=== PATIENT | female | born 1955 | race Caucasian/White ===

== ENCOUNTER 2020-10-04 13:33 | Outpatient (REF) | payer MEDICARE, MEDICAID, SELFPAY ==
--- NOTE | 2020-10-04 13:45 | US_ITS ---
EXAMINATION: US EXTRACRANIAL CAROTID DUPLEX, BILATERAL CLINICAL INFORMATION: This is a 65-year-old female with TIA. Carotid artery disease. COMPARISON: None TECHNIQUE: Real-time ultrasound and Doppler techniques (integrating B-mode 2-D vascular images, Doppler spectral analysis and color-flow Doppler imaging) were utilized to interrogate the extracranial carotid arteries, the vertebral arteries and proximal subclavian arteries bilaterally. The degree of stenosis is determined by criteria similar to NASCET. FINDINGS: Right Side: 1. There is minimal atherosclerotic plaque seen in the bifurcation/proximal ICA region. 2. The common carotid artery PSV proximally is 85 cm/s and distally 65 cm/s. 3. The proximal internal carotid artery velocities are 47 cm/s systolic and 13 cm/s diastolic. 4. The proximal external carotid artery PSV is 62 cm/s. 5. The vertebral artery shows antegrade flow. 6. The subclavian artery waveforms are normal. Left Side: 1. There is minimal atherosclerotic plaque seen in the bifurcation/proximal ICA region. 2. The common carotid artery PSV proximally is 108 cm/s and distally 67 cm/s. 3. The proximal internal carotid artery velocities are 63 cm/s systolic and 16 cm/s diastolic. 4. The proximal external carotid artery PSV is 75 cm/s. 5. The vertebral artery shows antegrade flow. 6. The subclavian artery waveforms are normal. US/US carotid duplex BI IMPRESSION: 1. RIGHT: Minimal, non-hemodynamically significant stenosis of the proximal right internal carotid artery corresponding to a 0-49% stenosis by velocity criteria. 2. LEFT: Minimal, non-hemodynamically significant stenosis of the proximal left internal carotid artery corresponding to a 0-49% stenosis by velocity criteria.
[2020-10-04 16:38] LABS: MANUAL DIFF FLAG NO
[2020-10-04 16:40] LABS: Basophils Percent Auto 0.2 % (0-2); Eosinophils Absolute Auto 0.1 X10*3/uL (0.0-0.4); Hematocrit 41.2 % (37-47); Hemoglobin 13.5 g/dl (12.0-16.0); Imm Gran Abs Auto 0.02 X10*3/uL (0.00-0.03); Imm Gran Pct Auto 0.2 % (0.0-0.4); Lymphocytes Absolute Auto 2.3 X10*3/uL (1.2-4.9); Lymphocytes Percent Auto 27.8 % (20-40); Mean Corpuscular HGB Conc 32.8 g/dl (31.0-35.0); Mean Corpuscular Hemoglobin 30.5 pg (27.0-33.0); Mean Corpuscular Volume 93.2 fL (80-98); Mean Platelet Volume 8.9 fL (9.4-12.3); Monocytes Absolute Auto 0.4 X10*3/uL (0.1-1.2); Monocytes Percent Auto 5.4 % (2-11); Neutrophils Absolute Auto 5.3 X10*3/uL (2.0-8.3); Neutrophils Percent Auto 65.4 % (45-73); Platelet Count 446 X10*3/uL (160-400); Red Blood Count 4.42 X10*6/uL (4.20-5.50); Red Cell Distribution Width 11.9 % (11.0-16.0); White Blood Count 8.1 X10*3/uL (4.8-10.8)
[2020-10-04 17:10] LABS: Anion Gap 15 (12-20); Blood Urea Nitrogen 10 mg/dL (9-16); Calcium 9.5 mg/dL (8.4-10.2); Carbon Dioxide 27 mmol/L (22-29); Chloride 98 mmol/L (96-108); Estimated Glomerular Filt Rate > 60; Glucose Random 79 mg/dL (60-115); Potassium 4.1 mmol/l (3.3-5.1); Sodium 136 mmol/L (135-145)
[2020-10-04 17:32] LABS: Thyroid Stimulating Hormone 0.53 uIU/mL (0.32-4.0)
== END 2020-10-04 13:34 | disposition home or self-care (01) ==
LOC: HO.HMGCX 13:33
PROVIDERS: PCP Internal Medicine; Visit Provider Internal Medicine
DX: Z00.00 Encounter for general adult medical examination without abnormal findings (principal); G45.9 Transient cerebral ischemic attack, unspecified; R15.9 Full incontinence of feces; E03.9 Hypothyroidism, unspecified
CPT/HCPCS: 36415; 80048; 84443; 85025; 93880

== ENCOUNTER 2020-10-08 10:17 | Outpatient (REF) | payer MEDICARE, MEDICAID, SELFPAY ==
--- NOTE | 2020-10-08 10:21 | CT_ITS ---
EXAMINATION: CT HEAD WITHOUT CONTRAST CLINICAL INFORMATION: TIA. COMPARISON: None TECHNIQUE: Contiguous axial imaging was performed from the skull base to vertex without intravenous administration of contrast. This CT examination was performed using dose optimization techniques as appropriate, variously including the following: *Automated exposure control *Adjustment of mA and/or kV according to patient size (this includes techniques or standardized protocols for targeted exams where dose is matched to indication/reason for exam; i.e. extremities or head) *Use of iterative reconstruction technique DLP: 815 mGy-cm FINDINGS: There is no evidence of acute intracranial hemorrhage or territorial infarction. No abnormal mass effect or midline shift is seen. Greene to white matter differentiation is well preserved. No extra-axial fluid collections are identified. The ventricles are normal in size. There is no abnormal attenuation within the brain parenchyma. The osseous structures and soft tissues are normal. The mastoid air cells and visualized portions of the paranasal sinuses are well aerated. CT/CT head/brain wo con IMPRESSION: No acute intracranial process seen.
== END 2020-10-08 10:18 | disposition home or self-care (01) ==
LOC: HO.CT 10:17
PROVIDERS: Visit Provider Internal Medicine
DX: G45.9 Transient cerebral ischemic attack, unspecified (principal)
CPT/HCPCS: 70450

== ENCOUNTER 2020-10-12 10:30 | Emergency (ER) | payer MEDICARE, MEDICAID, SELFPAY ==
[2020-10-12 10:34] VITALS: BP 185/101; PULSE 85; RESP 20; TEMP 36.6; O2SAT 100; BMI 20.2
--- NOTE | 2020-10-12 10:57 | ECG_ITS ---
Test Reason : TIA Blood Pressure : / mmHG Vent. Rate : 072 BPM Atrial Rate : 072 BPM P-R Int : 154 ms QRS Dur : 080 ms QT Int : 414 ms P-R-T Axes : 070 016 038 degrees QTc Int : 453 ms Normal sinus rhythm Normal ECG When compared to the previous EKG of november 262005 Referred By: Irving Herrera Electronically Signed By:ALISON BRIGHT
--- NOTE | 2020-10-12 10:58 | ED.NEUROSD ---
HPI - Neuro Symptoms/Deficit General Chief Complaint: General Medical Stated Complaint: numbness Time Seen by Provider: 10/12/20 10:42 Source: patient Mode of arrival: ambulatory Limitations: no limitations History of Present Illness HPI Narrative: Patient's history of recent TIA with loss of vision in the right eye which lasted for a minute seen by bank operations officer on had carotid Doppler and CT head negative. Since then patient has been more anxious today about 45 minutes prior to arrival noticed tingling in all the fingers of right hand without any weakness no headache . Patient does have arthritis with mild neck pain. Never had similar symptoms before. No weakness. No sensory loss. Tingling is getting better now no other weakness no speech problem Onset (ago): minute(s) (45min) Related Data Allergies Allergy/AdvReac Type Severity Reaction Status Date / Time No Known Allergies Allergy Verified 10/07/20 11:36 [No Known Allergies*] Review of Systems Review of Systems: Constitutional : No Weight loss, No Fever, No Chills ENT/Mouth : No sore throat, No Rhinorrhea Eyes: No Eye Pain, No Swelling Cardiovascular : No Chest Pain, no palpitations Respiratory : No Cough, No Sputum, no shortness of breath Gastrointestinal : no Nausea, No Vomiting, No Diarrhea, No abdominal Pain, no black stools Genitourinary : No Dysuria, No Urinary Frequency Musculoskeletal : No joint pain, No Myalgias, No Joint Swelling Skin : No Skin Lesions, No rash Neuro : No Weakness,++ Numbness, No Dizziness, No Headache Psych : No Anxiety/Panic, No Depression Heme/Lymph: No Bruising, No Lymphadenopathy Endocrine : No Polyuria, No Polydipsia All other systems reviewed and are negative Neurologic: Denies Abnormal speech present [facility] Past Medical History Medical History (Updated 10/12/20 @ 12:32 by Irving Herrera MD) Appendicitis TIA (transient ischemic attack) Family History Family History Mother No problems noted. Father No problems noted. Social History Social History Alcohol intake: never Smoking Status: Former smoker Years Smoked: 1999 Advance Directives: No Advance Directives Information Provided: No Physical Exam Vital Signs: Vital Signs: Last Vital Signs Temp 97.8 F 10/12/20 10:34 Pulse 85 10/12/20 10:34 Resp 20 10/12/20 10:34 BP 185/101 H 10/12/20 10:34 Pulse Ox 100 10/12/20 10:34 Body Mass Index 20.2 Const: General: cooperative, healthy appearing, no acute distress, well developed, alert, awake and anxious Orientation/consciousness: patient oriented x3 HENMT: Head: Yes normal to inspection Ears: hearing grossly normal bilaterally General nose exam: Normal external nose present Face and sinus: Yes normal facial exam Mouth: Normal oral and palatal mucosa present Throat: Yes posterior oropharynx normal Eyes: General: appearance normal, both eyes and all related structures Pupils: Equal, round and reactive pupils present Neck: Neck: Yes normal visual inspection and Yes no JVD Chest: Chest palpation & inspection: normal inspection of the chest Resp: Effort & Inspection: normal respiratory effort Auscultation: clear to auscultation bilaterally, no crackles, no rales and no rhonchi Cardio: Palpation: normal PMI Rate: regular rate Rhythm: regular rhythm Heart sounds: S1 normal heart sound present and S2 normal heart sound present GI: Inspection: Yes normal to inspection Palpation (GI): Soft to palpation and nontender Auscultation: normal bowel sounds : General: Yes no CVA tenderness Back/Spine/Pelvis: Back: no CVA tenderness Cervical Spine: cervical ROM normal, cervical muscular tenderness, No Cervical spine tenderness and No step off deformity Thoracic/Lumbar Spine: thoracic and lumbar spine normal to inspection Skin: General skin exam: no rashes or lesions noted Neuro: General: patient oriented x3, gait normal, tone normal, moves all extremities, Normal light touch and pain sensation, no focal motor deficits, CN's II-XI intact bilaterally, normal sensation to monofilament and deep tendon reflexes 2+ bilaterally Cranial nerves: Yes Equal, round and reactive pupils present Cognition (Neuro): normal cognition Speech: No Abnormal speech present Gait exam (Neuro): Normal gait present Motor exam (neuro): 5/5 motor strength present throughout MDM - Neuro Symptoms/Deficit MDM Narrative Medical decision making narrative: Patient with nonspecific tingling in right hand without any sensory or motor weakness. Patient recently had carotid Doppler and CT scan of the head negative. Patient cholesterol is normal and D-dimer is negative patient advised to follow-up with PCP likely symptoms from anxiety possible cervical origin. Medical Records Attestation: I reviewed the patient's medical records. Lab Data Attestation: I reviewed the patient's lab results. Labs: Lab Results 10/12/20 10/12/20 Range/Units 11:17 11:17 D-Dimer < 200 NG/ML Triglycerides 74 mg/dL Cholesterol 206 mg/dL LDL Cholesterol, Calc 101 mg/dl HDL Cholesterol 91 mg/dL ECG Data Attestation: I personally reviewed and interpreted this ECG as follows: Interpretation: Normal sinus rhythm heart rate 72 beats per minute normal axis normal intervals no acute ST T wave changes impression normal EKG Discharge Plan Discharge Clinical Impression: Arm paresthesia, right Patient Disposition: Home, Self-Care Instructions: Paresthesia (ED) Additional Instructions: Follow-up with PCP/neurologist As needed Report to the ER if any weakness
[2020-10-12 11:52] LABS: Cholesterol 206 mg/dL; D Dimer < 200 NG/ML; HDL Cholesterol 91 mg/dL; LDL Cholesterol Calculated 101 mg/dl; Triglycerides 74 mg/dL
== END 2020-10-12 13:17 | disposition home or self-care (01) ==
PROVIDERS: Emergency Provider Internal Medicine; PCP Internal Medicine
DX: R20.2 Paresthesia of skin (principal); Z87.891 Personal history of nicotine dependence
CPT/HCPCS: 36415; 80061; 85379; 93005; 99283

== ENCOUNTER 2020-11-15 07:55 | Emergency (ER) | payer MEDICARE, MEDICAID, SELFPAY ==
[2020-11-15 07:56] VITALS: BP 183/94; PULSE 100; RESP 18; TEMP 36.9; O2SAT 100; BMI 19.8
--- NOTE | 2020-11-15 09:46 | ECG_ITS ---
Test Reason : HX TIA Blood Pressure : / mmHG Vent. Rate : 067 BPM Atrial Rate : 067 BPM P-R Int : 164 ms QRS Dur : 086 ms QT Int : 422 ms P-R-T Axes : 068 008 033 degrees QTc Int : 445 ms Normal sinus rhythm Normal ECG When compared with ECG of 12-OCT-2020 11:09, No significant change was found Referred By: Robin Sepulveda Electronically Signed By:NERY RUEDA MD
--- NOTE | 2020-11-15 09:47 | ED.GENADULT ---
HPI - General Adult General Chief complaint: Headache Stated complaint: HBP Time Seen by Provider: 11/15/20 09:24 Source: patient Mode of arrival: ambulatory Limitations: no limitations History of Present Illness HPI narrative: 65-year-old female who presents emergency department for evaluation elevated blood pressure. The patient states she had a right ocular TIA 1 month prior with sudden loss of vision which recovered. She states that she has had a workup which included a CT scan which was negative and carotid studies which were negative. She states that recently she had an MRI of the brain and echocardiogram which believes are normal but she has not followed up with her doctor yet to discuss these results. She states that after her TIA she was started on amlodipine 5 mg daily. She states that her blood pressures remained elevated in the 150/80 range and she was started on lisinopril 10 mg once a day. She has been on lisinopril for 9 days. She states that since starting the lisinopril she has had brief intermittent sharp headaches located in her left orthodoxy area. She states she gets these several times a day. She has also had lightheadedness and dizziness which is episodic, lasting seconds and gets 3-4 episodes per day. She states that this morning, she was not feeling anxious, she was asymptomatic and she took her blood pressure and it was 197/94 therefore she came to the emergency department for evaluation. At the time of evaluation, she has no symptoms. Related Data Allergies Allergy/AdvReac Type Severity Reaction Status Date / Time No Known Allergies Allergy Verified 10/14/20 08:46 [No Known Allergies*] Review of Systems Review of Systems: Yes all other systems are reviewed and are negative Neurologic: Reports Abnormal speech present [facility] Past Medical History [facility] Narrative: Ocular TIA, 1 month prior, hypertension, hyperlipidemia, appendectomy. The patient states that she is a former smoker and quit smoking 20 years prior, she has a 20 pack-year history. She denies alcohol use. She does smoke marijuana 2 to 3 times a week. Medical History (Updated 11/15/20 @ 12:08 by Robin Sepulveda MD) Appendicitis TIA (transient ischemic attack) Surgical History (Updated 10/14/20 @ 08:46 by LUIS Redmond) History of appendectomy Family History Family History Mother No problems noted. Father No problems noted. Social History Social History Alcohol intake: never Smoking Status: Never smoker Years Smoked: 1999 Use of substances other than those prescribed or required for medical reasons: Yes Substance Use Type: Marijuana Substance Use Frequency: Weekly Advance Directives: No Advance Directives Information Provided: Yes Physical Exam Vital Signs: Vital Signs: Last Vital Signs Temp 98.2 F 11/15/20 09:50 Pulse 77 11/15/20 09:50 Resp 15 11/15/20 09:50 BP 136/71 11/15/20 09:50 Pulse Ox 100 11/15/20 09:50 Body Mass Index 19.8 Const: General: cooperative and healthy appearing Orientation/consciousness: oriented to person and oriented to place Limitations: no limitations HENMT: Head: Yes normal to inspection, Yes normocephalic, Yes atraumatic and Yes other (No temporal tenderness, no sinus tenderness) Ears: external ears normal General nose exam: Normal external nose present Face and sinus: Yes normal facial exam Mouth: Normal oral and palatal mucosa present Throat: Yes posterior oropharynx normal Eyes: Periorbital: periorbital findings normal Eyelids: Yes eyelids normal Conjunctivae: conjunctivae normal Sclerae: sclerae normal Corneas: corneas normal Pupils: Equal, round and reactive pupils present Direct Ophthalmoscopy: normal light reflex Neck: Neck: Yes full ROM, Yes no lymphadenopathy, Yes no meningeal signs, Yes trachea midline and Yes supple Chest: Chest palpation & inspection: normal inspection of the chest and normal palpation of entire chest wall Resp: Effort & Inspection: normal respiratory effort and able to speak in complete sentences Auscultation: clear to auscultation bilaterally Cardio: Rate: regular rate Rhythm: regular rhythm Heart sounds: S1 normal heart sound present, S2 normal heart sound present and no murmurs GI: Inspection: Yes normal to inspection Palpation (GI): Soft to palpation, nontender, no guarding, not rigid and No hepatosplenomegaly present : General: Yes no CVA tenderness Back/Spine/Pelvis: Back: no CVA tenderness Cervical Spine: normal cervical lordosis Thoracic/Lumbar Spine: thoracic and lumbar spine normal to inspection Skin: Lesions: no lesions Rashes: no rashes Wounds: no wounds Neuro: General: oriented to person, oriented to place and no meningeal signs Cranial nerves: Yes CN's II-XII intact bilaterally and Yes Equal, round and reactive pupils present Cognition (Neuro): normal cognition Speech: Abnormal speech present Motor exam (neuro): 5/5 motor strength present throughout Extrem: General: Yes normal to inspection and Yes full ROM Psych: Appearance: well kempt Mental Status: mental status grossly normal Speech and movement: Normal speech and movement present Affect: normal affect Attitude: cooperative Thought process: Normal thought process present Thought content: Normal thought content present Course Course Course Narrative: 65-year-old female with a history of ocular TIA 1 month prior, recently diagnosed and started treatment for hypertension who was on amlodipine for 1 month and lisinopril for 9 days who presents emergency department for evaluation of an elevated blood pressure of 197/94 for which she took at home. She was asymptomatic when she had this high blood pressure reading. Her examination at this time is unremarkable. The patient will get an EKG to make sure that she is not in atrial fibrillation in laboratory evaluation to rule out electrolyte abnormalities related to her new medications. 1206: The patient's laboratory evaluation is unremarkable. Twelve lead EKG revealed no significant abnormalities. The patient's blood pressures have normalized without treatment, the patient's most recent blood pressure was 114/67. The patient remains asymptomatic. I will discuss the patient's presentation with her PCP. The patient was discharged home and advised to check her blood pressure 3 times a week for next 2 weeks and discuss these readings with her PCP. Medical Decision Making Lab Data Result diagrams: 11/15/20 10:00 11/15/20 10:00 Labs: Lab Results 11/15/20 11/15/20 Range/Units 10:00 10:00 WBC 5.0 (4.8-10.8) X10*3/uL RBC 4.32 (4.20-5.50) X10*6/uL Hgb 13.3 (12.0-16.0) g/dl Hct 39.5 (37-47) % MCV 91.4 (80-98) fL MCH 30.8 (27.0-33.0) pg MCHC 33.7 (31.0-35.0) g/dl RDW 12.2 (11.0-16.0) % Plt Count 306 D (160-400) X10*3/uL MPV 8.5 L (9.4-12.3) fL Immature Gran % (Auto) 0.0 (0.0-0.4) % Neut % (Auto) 60.5 (45-73) % Lymph % (Auto) 30.2 (20-40) % [place] % (Auto) 8.1 (2-11) % Eos % (Auto) 0.8 (0-4) % Baso % (Auto) 0.4 (0-2) % Lymph # (Auto) 1.5 (1.2-4.9) X10*3/uL [place] # (Auto) 0.4 (0.1-1.2) X10*3/uL Eos # (Auto) 0.0 (0.0-0.4) X10*3/uL Baso # (Auto) 0.0 (0.0-0.2) X10*3/uL Abs Immat Gran (auto) 0.00 (0.00-0.03) X10*3/uL Absolute Neuts (auto) 3.0 (2.0-8.3) X10*3/uL Absolute Nucleated RBC 0.000 (0.0-0.012) X10*3/uL Nucleated RBC % (auto) 0.0 (0.0-0.2) /100WBC Sodium 141 (135-145) mmol/L Potassium 4.3 (3.3-5.1) mmol/L Chloride 106 (96-108) mmol/L Carbon Dioxide 26 (22-29) mmol/L Anion Gap 13 (12-20) BUN 9 (9-16) mg/dL Creatinine 0.71 (0.5-1.4) mg/dL Estim Creat Clear Calc 75.7 Estimated GFR > 60 Random Glucose 98 (60-115) mg/dL Calcium 9.5 (8.4-10.2) mg/dL Total Bilirubin 0.8 (0.0-1.0) mg/dL AST 24 (5-31) U/L ALT 31 (0-31) U/L Alkaline Phosphatase 108 (39-117) U/L Total Protein 6.7 (6.5-8.0) g/dL Albumin 4.5 (3.5-5.0) g/dL ECG Data Attestation: I personally reviewed and interpreted this ECG as follows: Interpretation: 1009: Normal sinus rhythm with a rate of 67, normal VT, QRS and QTC intervals, no ST segment elevation or depression, no PACs or PVCs, no old EKG for comparison. This is a normal EKG. Discharge Plan Discharge Clinical Impression: Hypertension Qualifiers: Hypertension type: essential hypertension Qualified Code(s): I10 - Essential (primary) hypertension Patient Disposition: Home, Self-Care Additional Instructions: The reason to check your blood pressure at home is to give your doctor an idea of what your blood pressure does when you are not in the doctor's office. Take your blood pressure in the morning, Wednesday , Wednesday and Wednesday and then write down these readings to discuss them with your doctor at your next visit. If you doctor decides that your blood pressure readings are high than your doctor will start you on medications. It sometimes takes blood pressure medications 1-2 months or longer to get your blood pressure under control. Lowering your blood pressure to rapidly or getting your blood pressure too low quickly can make you feel bad. Please return to the emergency department if you develops concerning symptoms such as severe headache, chest pain, shortness of breath, difficulty walking secondary to shortness of breath, numbness, weakness, difficulty talking. Take Tylenol (acetaminophen) 500 mg pills, 2 pills every 4 to 6 hours as needed for pain/headaches. Follow-up with your doctor to discuss your blood pressure readings. Please return to the emergency department if your symptoms get worse or if you develop any new symptoms that are concerning to you.
[2020-11-15 09:50] VITALS: BP 136/71; PULSE 77; RESP 15; TEMP 36.8; O2SAT 100
[2020-11-15 10:07] LABS: MANUAL DIFF FLAG NO
[2020-11-15 10:09] LABS: Basophils Percent Auto 0.4 % (0-2); Eosinophils Percent Auto 0.8 % (0-4); Hematocrit 39.5 % (37-47); Hemoglobin 13.3 g/dl (12.0-16.0); Lymphocytes Absolute Auto 1.5 X10*3/uL (1.2-4.9); Lymphocytes Percent Auto 30.2 % (20-40); Mean Corpuscular HGB Conc 33.7 g/dl (31.0-35.0); Mean Corpuscular Hemoglobin 30.8 pg (27.0-33.0); Mean Corpuscular Volume 91.4 fL (80-98); Mean Platelet Volume 8.5 fL (9.4-12.3); Monocytes Absolute Auto 0.4 X10*3/uL (0.1-1.2); Monocytes Percent Auto 8.1 % (2-11); Neutrophils Percent Auto 60.5 % (45-73); Platelet Count 306 X10*3/uL (160-400); Red Blood Count 4.32 X10*6/uL (4.20-5.50); Red Cell Distribution Width 12.2 % (11.0-16.0)
[2020-11-15 10:30] LABS: Alanine Aminotransferase 31 U/L (0-31); Albumin Level 4.5 g/dL (3.5-5.0); Alkaline Phosphatase 108 U/L (39-117); Anion Gap 13 (12-20); Aspartate Amino Transferase 24 U/L (5-31); Bilirubin Total 0.8 mg/dL (0.0-1.0); Blood Urea Nitrogen 9 mg/dL (9-16); Calcium 9.5 mg/dL (8.4-10.2); Carbon Dioxide 26 mmol/L (22-29); Chloride 106 mmol/L (96-108); Creatinine Clr Calc Pharmacy 75.7; Estimated Glomerular Filt Rate > 60; Glucose Random 98 mg/dL (60-115); Potassium 4.3 mmol/L (3.3-5.1); Sodium 141 mmol/L (135-145); Total Protein 6.7 g/dL (6.5-8.0)
[2020-11-15 11:30] VITALS: BP 110/70; PULSE 62
[2020-11-15 12:23] VITALS: BP 119/67; PULSE 64
== END 2020-11-15 12:27 | disposition home or self-care (01) ==
PROVIDERS: Emergency Provider Emergency Medicine Emergency Medical Services; PCP Internal Medicine
DX: R51.9 Headache, unspecified (principal); I10 Essential (primary) hypertension; E78.5 Hyperlipidemia, unspecified; F12.90 Cannabis use, unspecified, uncomplicated; Z86.73 Personal history of transient ischemic attack (TIA), and cerebral infarction without residual deficits; Z87.891 Personal history of nicotine dependence; Z79.899 Other long term (current) drug therapy
CPT/HCPCS: 36415; 80053; 85025; 93005; 99283; 99284

== ENCOUNTER 2023-05-19 13:42 | Outpatient (REF) | payer MEDICARE, MEDICAID, SELFPAY ==
[2023-05-19 15:13] LABS: Blood Urea Nitrogen 12 mg/dL (9-16); Estimated Glomerular Filt Rate > 60
== END 2023-05-19 13:43 | disposition home or self-care (01) ==
LOC: HO.LAB 13:42
PROVIDERS: PCP Internal Medicine; Visit Provider Internal Medicine
DX: K62.5 Hemorrhage of anus and rectum (principal); R93.3 Abnormal findings on diagnostic imaging of other parts of digestive tract
CPT/HCPCS: 36415; 82565; 84520

== ENCOUNTER 2023-06-17 07:43 | Outpatient (REF) | payer MEDICARE, MEDICAID, SELFPAY ==
--- NOTE | ~2023-06-17 | CT_ITS ---
STUDY PERFORMED: CTA ABDOMEN AND PELVIS WITHOUT AND WITH CONTRAST HISTORY: Hemorrhage of the anus and rectum. DESCRIPTION: Routine abdomen and pelvis CTA protocol with contrast was performed. 80 mL of Omnipaque 350 was administered. 3D POSTPROCESSING: Multiple 3-D angiographic images were processed from the initial data set by the [facility] on an independent workstation under concurrent physician supervision. DOSE LOWERING TECHNIQUES: This CT examination was performed using dose optimization techniques as appropriate, variously including the following: - Automated exposure control - Adjustment of mA and/or kV according to patient size (this includes techniques or standardized protocols for targeted exams where dose is matched to indication/reason for exam; i.e. extremities or head) - Use of iterative reconstruction technique DOSE LENGTH PRODUCT: 224.9 mGy-cm COMPARISON: None FINDINGS: VASCULAR: ABDOMINAL AORTA: Normal caliber. Minimal infrarenal atherosclerosis. RIGHT ILIAC ARTERY: Widely patent. LEFT ILIAC ARTERY: Widely patent. CELIOMESENTERIC ARTERIES: The celiac, SMA, DEREK are widely patent. RENAL ARTERIES: Bilateral renal arteries are widely patent. The nephrograms are symmetric. NONVASCULAR: Lung Bases: Scarring or atelectasis at the lung bases. Small hiatal hernia. Liver, Gallbladder and Biliary Tree: Subcapsular focus of nonmass-like enhancement in segment 7 at the dome may be a transient perfusional anomaly versus hemangioma. In the absence of a personal history of malignancy or chronic liver disease, no follow-up imaging is recommended. Otherwise the liver appears normal. The gallbladder appears normal. Pancreas: No discrete pancreatic mass. No pancreatic ductal dilatation. Spleen: Normal. Adrenal Glands: No adrenal mass. Kidneys and Ureters: The kidneys are normal in size, shape, and attenuation. No hydronephrosis, hydroureter, or calculi seen. No perinephric stranding. Bladder: Unremarkable. Gastrointestinal Tract: The small and large bowel are normal in caliber. No extravasated intravascular contrast seen within the bowel lumen. No evidence of active enteritis or colitis. Abdominal Wall: No significant hernia is appreciated. Lymph Nodes: No lymphadenopathy. Pelvic Viscera: Unremarkable. Osseous Structures: Moderate degenerative disc disease at L5-S1. Degenerative changes at the pubic symphysis. CT/CT angio abdomen pelvis IMPRESSION: No CTA evidence of active GI bleed. The celiac, superior mesenteric, and inferior mesenteric arteries appear normal. Fleischner guidelines were followed.
[2023-06-17] MEDS: iohexoL 350 MG/ML 100 ML INFUS..BTL IV (09:11)
== END 2023-06-17 07:44 | disposition home or self-care (01) ==
LOC: HO.CT 07:43
PROVIDERS: Visit Provider Internal Medicine
DX: K62.5 Hemorrhage of anus and rectum (principal); R93.3 Abnormal findings on diagnostic imaging of other parts of digestive tract
CPT/HCPCS: 74174; Q9967

== ENCOUNTER 2023-08-09 11:31 | Day surgery (SDC) | payer MEDICARE, MEDICAID, SELFPAY ==
[2023-08-05 11:36] VITALS: BMI 19.5
--- NOTE | 2023-08-06 09:31 | P.CONAN_ITS ---
HPI - Anesthesia Eval Consult details Narrative: 68yo F for Colonoscopy PMFSH Past Medical History Medical History Former smoker Hyperlipemia HTN (hypertension) Appendicitis TIA (transient ischemic attack) Family History Family History Mother No problems noted. Father No problems noted. Surgical History Surgical History History of colonoscopy History of appendectomy Social History (Updated 08/05/23 @ 11:11 by Mi Govea RN) Are you a primary health care aide to a significant other at home: No Do you presently have visiting nurse or other home services: No Alcohol intake: never Patient Tobacco Use Status: Former Tobacco user Quit Date: 1999 Tobacco use type: Cigarette Use of substances other than those prescribed or required for medical reasons: Yes Substance Use Type: Marijuana Have you been hit, kicked, punched, or otherwise hurt by someone within the past year? If so, by whom?: No Are you DNR?: No Advance Directives: No Advance Directives Information Provided: Yes (brochure mailed) Advance Directives on File: No Recently lost weight without trying: No Eating poorly because of decreased appetite: No Nutrition Risks: No Nutritional Risk Poor oral hygiene: No Meds Allergies Allergy/AdvReac Type Severity Reaction Status Date / Time No Known Allergies Allergy Verified 08/09/23 11:47 [No Known Allergies*] Home Medications Medication Instructions Recorded Confirmed Last Taken Type aspirin 81 mg capsule 81 mg PO DAILY 08/04/23 08/09/23 08/06/23 History atorvastatin 20 mg tablet 20 mg PO DAILY 08/04/23 08/09/23 08/09/23 History diltiazem HCl 180 mg 180 mg PO DAILY 08/04/23 08/09/23 08/09/23 History capsule,extended release 24 hr lisinopril 40 mg tablet 40 mg PO DAILY 08/04/23 08/09/23 08/09/23 History spironolactone 25 mg tablet 25 mg PO DAILY 08/04/23 08/09/23 08/09/23 History Exam Height,Weight and Vital Signs: Height 5 ft 9 in Weight 60.056 kg Assessment and Plan Assessment Anesthesia Assessment: Chart Reviewed
[2023-08-09 12:05] VITALS: BP 133/86; PULSE 76; RESP 16; TEMP 36.5; O2SAT 100
[2023-08-09] MEDS: Lactated Ringers 1,000 ML 100 ML IVCONT (12:05)
[2023-08-09 14:52] VITALS: BP 87/47; PULSE 85; RESP 16; TEMP 36.7; O2SAT 98
--- NOTE | 2023-08-09 14:54 | PM.OP ---
Brief Operative Note Date of Service: 08/09/23 Pre-op diagnosis: Abnormal CT of Colon, Rectal bleeding Post-op diagnosis: other (Colon polyps) Procedure: Colonoscopy to the cecum and TI with hot snare polypectomy of TC polyp and cold snare polypectomy of polyp at 15cm, with one Resolution clip applied to each site. Surgeon: Caleb Barros MD Anesthesia: MAC Was an Certified Ophthalmic Assistant used for this Procedure?: No Estimated blood loss (mL): 2.0 Pathology: other (A. Transverse colon polyp B. Polyp at 15cm) Condition: stable Disposition: PACU
[2023-08-09 15:07] VITALS: BP 107/54; PULSE 76; RESP 16; TEMP 36.8; O2SAT 99
--- NOTE | 2023-08-10 00:09 | OP_ITS ---
DATE OF SERVICE: 08/09/2023 SURGEON: Caleb Barros MD INDICATIONS: The patient presents for evaluation of abnormal CT scan of colon and intermittent hematochezia. Full consent has been obtained from her for this, including risks of bleeding and perforation. PREOPERATIVE DIAGNOSIS: Hematochezia and abnormal CT scan of colon. POSTOPERATIVE DIAGNOSIS: Hematochezia and abnormal CT scan of colon, colon polyps, diverticulosis, and internal hemorrhoids. PROCEDURE PERFORMED: Colonoscopy to the cecum and terminal ileum with hot snare polypectomy and cold snare polypectomy with application of one resolution clip at each polypectomy site. ESTIMATED BLOOD LOSS: COMPLICATIONS: ANESTHESIA: Medication Used: Monitored anesthesia care. ASSISTANTS: SPECIMENS: DESCRIPTION OF PROCEDURE: The patient was placed in the left lateral decubitus position. The digital rectal exam revealed no abnormalities. The [employer] video pediatric colonoscope was entered into the rectum and advanced easily to the cecum. Once in the cecum, I did identify normal-appearing cecal pouch with appendiceal orifice and a normal-appearing ileocecal valve. The terminal ileum was cannulated and appeared normal. The scope was withdrawn back in the colon. The entire cecum and ileocecal valve appeared normal. The scope was slowly withdrawn, assessing all mucosal surfaces carefully. Preparation was excellent. In the transverse colon, was an approximately 6 to 8 mm polyp, which was removed by hot snare polypectomy and recovered by suction. The polypectomy site appeared clean, without any sign of residual polyp nor bleeding. A single resolution clip was applied with good deployment and good hemostasis. At 15 cm, was approximately 5 or 6 mm polyp, which was removed by cold snare polypectomy and recovered by suction. The polypectomy site appeared clean, without any sign of residual polyp nor significant bleeding. A single resolution clip was applied with good deployment and good hemostasis. I did not visualize any other polyps, colitis, or angiodysplasia. There was a mild amount of sigmoid diverticulosis. In the rectum, scope was retroflexed, visualizing internal hemorrhoids, but no other pathology. The rectal mucosa appeared normal. Scope was straightened and withdrawn from the patient. She tolerated the procedure well and was returned to the recovery area in stable condition. IMPRESSION: 1. Colon polyps. 2. Diverticulosis. 3. Internal hemorrhoids. PLAN: The results of the pathology will be checked. I would recommend a repeat colonoscopy in 5 years if either of these are tubular adenomas. They are both hyperplastic, then I would recommend a repeat colonoscopy in 10 years. She was advised to resume aspirin in 72 hours. She was advised not to use any NSAIDs for 1 week. She will, otherwise, see me on a p.r.n. basis. MD JADIEL Pierre/YONATHAN / [phone]
== END 2023-08-09 15:30 | disposition home or self-care (01) ==
PROVIDERS: PCP Internal Medicine; Visit Provider Internal Medicine
PROC: 0DJD8ZZ Inspection of Lower Intestinal Tract, Via Natural or Artificial Opening Endoscopic (ICD-10-PCS; CPT 45378; principal; 2023-08-09 12:50)
DX: K63.5 Polyp of colon (principal); K62.1 Rectal polyp; K57.30 Diverticulosis of large intestine without perforation or abscess without bleeding; K64.8 Other hemorrhoids; R93.3 Abnormal findings on diagnostic imaging of other parts of digestive tract; K62.5 Hemorrhage of anus and rectum; I10 Essential (primary) hypertension; E78.5 Hyperlipidemia, unspecified; F12.90 Cannabis use, unspecified, uncomplicated; Z86.73 Personal history of transient ischemic attack (TIA), and cerebral infarction without residual deficits; Z87.891 Personal history of nicotine dependence; Z79.899 Other long term (current) drug therapy; Z79.82 Long term (current) use of aspirin
CPT/HCPCS: 45385; 88305; J2250; J2371; J2704

== ENCOUNTER 2024-01-12 07:38 | Outpatient (REF) | payer MEDICARE, SELFPAY ==
--- NOTE | ~2024-01-12 | US_ITS ---
EXAMINATION: US ABDOMEN COMPLETE CLINICAL INFORMATION: Upper abdominal pain. COMPARISON: CTA abdomen and pelvis 06/17/2023. TECHNIQUE: Real-time imaging of the abdominal viscera. FINDINGS: PANCREAS: Normal. ABDOMINAL AORTA: Some calcific atherosclerotic plaque is present in the aorta, but there is no aneurysm. INFERIOR VENA CAVA: Visualized portions are normal. LIVER: Normal. The liver is normal in size. The liver contour is normal. Parenchymal echogenicity is normal. No focal hepatic lesion. There is no intrahepatic biliary duct dilatation seen. GALLBLADDER: Normal. The gallbladder is physiologically distended without evidence of stones, sludge, polyps, wall thickening or pericholecystic fluid. COMMON BILE DUCT: Normal in caliber measuring 0.9 cm in diameter. RIGHT KIDNEY: Normal. No hydronephrosis. No renal calculi or focal parenchymal lesions. The kidney measures 10.4 cm in maximum dimension. LEFT KIDNEY: Normal. No hydronephrosis. No renal calculi or focal parenchymal lesions. The kidney measures 10.1 cm in maximum dimension. SPLEEN: Normal. The spleen measures 9.5 cm in maximum dimension. FREE FLUID: None. US/US abdomen complete IMPRESSION: No significant abnormality is seen.
[2024-01-12 08:24] LABS: MANUAL DIFF FLAG NO
[2024-01-12 09:08] LABS: Basophils Percent Auto 0.4 % (0-2); Eosinophils Absolute Auto 0.1 X10*3/uL (0.0-0.4); Eosinophils Percent Auto 2.6 % (0-4); Hematocrit 36.5 % (37.0-47.0); Hemoglobin 12.3 g/dl (12.0-16.0); Imm Gran Abs Auto 0.02 X10*3/uL (0.00-0.03); Imm Gran Pct Auto 0.4 % (0.0-0.4); Lymphocytes Absolute Auto 1.2 X10*3/uL (1.2-4.9); Lymphocytes Percent Auto 24.8 % (20-40); Mean Corpuscular HGB Conc 33.7 g/dl (31.0-35.0); Mean Corpuscular Hemoglobin 31.3 pg (27.0-33.0); Mean Corpuscular Volume 92.9 fL (80.0-98.0); Mean Platelet Volume 8.2 fL (9.4-12.3); Monocytes Absolute Auto 0.5 X10*3/uL (0.1-1.2); Monocytes Percent Auto 9.4 % (2-11); Neutrophils Absolute Auto 3.1 x10*3/uL (2.0-8.3); Neutrophils Percent Auto 62.4 % (45-73); Platelet Count 301 X10*3/uL (160-400); Red Blood Count 3.93 X10*6/uL (4.20-5.50); Red Cell Distribution Width 12.2 % (11.0-16.0); White Blood Count 4.9 X10*3/uL (4.8-10.8)
[2024-01-12 09:47] LABS: Alanine Aminotransferase 21 U/L (0-31); Albumin Level 4.1 g/dL (3.5-5.0); Alkaline Phosphatase 110 U/L (39-117); Aspartate Amino Transferase 21 U/L (5-31); Bilirubin Direct 0.3 mg/dL (0.0-0.5); Bilirubin Total 0.6 mg/dL (0.0-1.0); Lipase 28 U/L (8-78); Total Protein 6.5 g/dL (6.5-8.0)
== END 2024-01-12 07:39 | disposition home or self-care (01) ==
LOC: HO.US 07:38
PROVIDERS: PCP Internal Medicine; Visit Provider Internal Medicine
DX: R10.10 Upper abdominal pain, unspecified (principal)
CPT/HCPCS: 36415; 76700; 80076; 83690; 85025

== ENCOUNTER 2024-12-22 07:56 | Emergency (ER) | payer MEDICARE, SELFPAY ==
[2024-12-22 08:00] VITALS: BP 155/58; PULSE 69; RESP 18; TEMP 36.6; O2SAT 100
--- NOTE | 2024-12-22 08:04 | ECG_ITS ---
Test Reason : dizziness Blood Pressure : */* mmHG Vent. Rate : 64 BPM Atrial Rate : 64 BPM P-R Int : 172 ms QRS Dur : 86 ms QT Int : 424 ms P-R-T Axes : 68 7 49 degrees QTcB Int : 437 ms Normal sinus rhythm Normal ECG When compared with ECG of 15-Nov-2020 10:09, No significant change was found Referred By: Generic ED Physician Electronically Signed By: ALISON BRIGHT
[2024-12-22 08:28] VITALS: BP 128/52; PULSE 68; RESP 16; O2SAT 99
[2024-12-22 08:29] LABS: MANUAL DIFF FLAG NO
[2024-12-22 08:30] LABS: Basophils Percent Auto 0.2 % (0-2); Eosinophils Absolute Auto 0.1 X10*3/uL (0.0-0.4); Eosinophils Percent Auto 0.8 % (0-4); Hematocrit 36.6 % (37.0-47.0); Hemoglobin 12.6 g/dl (12.0-16.0); Imm Gran Abs Auto 0.02 X10*3/uL (0.00-0.03); Imm Gran Pct Auto 0.3 % (0.0-0.4); Lymphocytes Absolute Auto 1.3 X10*3/uL (1.2-4.9); Lymphocytes Percent Auto 20.4 % (20-40); Mean Corpuscular HGB Conc 34.4 g/dl (31.0-35.0); Mean Corpuscular Hemoglobin 31.3 pg (27.0-33.0); Mean Platelet Volume 8.3 fL (9.4-12.3); Monocytes Absolute Auto 0.4 X10*3/uL (0.1-1.2); Monocytes Percent Auto 6.6 % (2-11); Neutrophils Absolute Auto 4.4 x10*3/uL (2.0-8.3); Neutrophils Percent Auto 71.7 % (45-73); Platelet Count 327 X10*3/uL (160-400); Red Blood Count 4.02 X10*6/uL (4.20-5.50); Red Cell Distribution Width 12.6 % (11.0-16.0); White Blood Count 6.2 X10*3/uL (4.8-10.8)
[2024-12-22 08:41] LABS: INTERNATIONAL NORM RATIO 0.9 (0.9-1.1); Prothrombin Time 9.9 SEC (10.9-12.4)
--- NOTE | 2024-12-22 08:49 | ED.GENADULT ---
HPI - General Adult General Chief complaint: Dizziness Stated complaint: Dizzy ? TIA Time Seen by Provider: 12/22/24 08:49 History of Present Illness ED Provider: Kylee W[place] narrative: The patient is a 69-year-old woman with a history of hypertension. She also may have had an episode of a TIA a few years ago. The patient says that she was at a bar last night. She had some alcohol and smoked some marijuana. At some point she was outside of the bar when she found that the lights in his string of lights were bothering her a great deal. She felt unwell and nauseated and became quite lightheaded and sweaty. She felt so unwell that somebody drove her home. She slept from about midnight to 05:00. When she woke up at 05:00 this morning she felt pretty well. However she received several phone calls from people who were with her last night who encouraged her to get checked by a doctor this morning because of the symptoms that she had last night. This morning she is feeling well. She is having no dizziness or difficulty walking. She is having no headache. There has been no nausea or vomiting. She does not have any difficulty speaking. No lateralizing weakness. No numbness. She drove herself to the emergency room this morning for evaluation. She did not feel that she was having any trouble driving. Related Data Home Medications ?Medication ?Instructions ?Recorded ?Confirmed aspirin 81 mg capsule 81 mg PO DAILY 08/04/23 08/09/23 atorvastatin 20 mg tablet 20 mg PO DAILY 08/04/23 08/09/23 diltiazem HCl 180 mg 180 mg PO DAILY 08/04/23 08/09/23 capsule,extended release 24 hr lisinopril 40 mg tablet 40 mg PO DAILY 08/04/23 08/09/23 spironolactone 25 mg tablet 25 mg PO DAILY 08/04/23 08/09/23 Allergies Allergy/AdvReac Type Severity Reaction Status Date / Time No Known Allergies Allergy Verified 12/22/24 08:02 [No Known Allergies*] Review of Systems Review of Systems: Yes all other systems are reviewed and are negative [facility] Past Medical History Medical History (Updated 12/22/24 @ 09:08 by Balbir Pichardo MD) Former smoker Hyperlipemia HTN (hypertension) Appendicitis TIA (transient ischemic attack) Surgical History History of colonoscopy History of appendectomy Family History Family History Mother No problems noted. Father No problems noted. Social History Social History (Updated 08/05/23 @ 11:11 by Mi Govea RN) Are you a primary eye care professional to a significant other at home: No Do you presently have visiting nurse or other home services: No Alcohol intake: never Patient Tobacco Use Status: Former Tobacco user Tobacco use type: Cigarette Smoked in Last 30 Days: No Substance Use Type: Marijuana Substance Use Frequency: Occasionally Advance Directives: No Advance Directives Information Provided: Yes Physical Exam ED Vital Signs: Vital Signs - 24 hr 12/22/24 08:00 12/22/24 08:28 Temperature 97.9 F Pulse Rate 69 68 Respiratory Rate 18 16 Blood Pressure 155/58 H 128/52 L Pulse Oximetry 100 99 Oxygen Delivery Method Room Air Room Air BMI result Body Mass Index 20.0 Const Other: The patient is a fit looking 69-year-old who was awake and alert with a pleasant demeanor. She looks entirely well. HENMT Other: Face is symmetrical. Mucous membranes moist. Tongue is midline. Eyes Other: No nystagmus General: appearance normal, both eyes and all related structures Visual Vance: normal visual vance by confrontation Alignment and Position: alignment normal Eyelids: Yes eyelids normal Conjunctivae: conjunctivae normal Pupils: Equal, round and reactive pupils present EOM: EOMs intact bilaterally Neck Other: no bruit Neck: Yes normal visual inspection, Yes full ROM, Yes no lymphadenopathy and Yes no JVD Resp Effort & Inspection: normal respiratory effort Auscultation: clear to auscultation bilaterally Cardio Rate: regular rate Rhythm: regular rhythm Heart sounds: S1 normal heart sound present and S2 normal heart sound present GI Other: abdomen is soft and nontender Skin Other: skin is dry and unremarkable Neuro Other: the patient is awake and alert with a normal mental status. Cranial nerves 2-12 are intact. Normal strength and sensation in all 4 extremities. No pronator drift. Finger-nose is normal. Heel-monaco in his normal. Gait is normal. NIH stroke scale is 0. She seems entirely neurologically intact. Cranial nerves: Yes Equal, round and reactive pupils present Extrem Other: No peripheral edema. Medical Decision Making Medical Decision Making [facility] Narrative: The patient is a 69-year-old woman who had an unusual episode last night when she was at a bar. She had had some alcohol and marijuana. She apparently felt abruptly photophobic and unwell. She was diaphoretic and lightheaded. She was taken home by a friend and slept. This morning she felt much better. Because of the degree of illness she apparently exhibited last night friends called her and told her she should come to the hospital for evaluation. She drove herself here this morning. She feels well this morning. Her physical exam no neurological deficits. She looks entirely well. Vital signs are stable with a good blood pressure. I suspect that she either had a migraine phenomenon last night or she had symptoms related to a mixture of alcohol and marijuana. In any event she looks well enough for discharge and should follow up with her PCP. Lab Data 12/22/24 08:17 12/22/24 08:17 Labs: Lab Results 12/22/24 Range/Units 08:17 WBC 6.2 (4.8-10.8) X10*3/uL RBC 4.02 L (4.20-5.50) X10*6/uL Hgb 12.6 (12.0-16.0) g/dl Hct 36.6 L (37.0-47.0) % MCV 91.0 (80.0-98.0) fL MCH 31.3 (27.0-33.0) pg MCHC 34.4 (31.0-35.0) g/dl RDW 12.6 (11.0-16.0) % Plt Count 327 (160-400) X10*3/uL MPV 8.3 L (9.4-12.3) fL Immature Gran % (Auto) 0.3 (0.0-0.4) % Neut % (Auto) 71.7 (45-73) % Lymph % (Auto) 20.4 (20-40) % Appling % (Auto) 6.6 (2-11) % Eos % (Auto) 0.8 (0-4) % Baso % (Auto) 0.2 (0-2) % Lymph # (Auto) 1.3 (1.2-4.9) X10*3/uL Appling # (Auto) 0.4 (0.1-1.2) X10*3/uL Eos # (Auto) 0.1 (0.0-0.4) X10*3/uL Baso # (Auto) 0.0 (0.0-0.2) X10*3/uL Abs Immat Gran (auto) 0.02 (0.00-0.03) X10*3/uL Absolute Neuts (auto) 4.4 (2.0-8.3) x10*3/uL Absolute Nucleated RBC 0.000 (0.0-0.012) X10*3/uL Nucleated RBC % (auto) 0.0 (0.0-0.2) /100WBC PT 9.9 L (10.9-12.4) SEC INR 0.9 (0.9-1.1) Discharge Plan Discharge Clinical Impression: Dizziness, Photophobia, Near syncope Patient Disposition: Home, Self-Care Additional Instructions: I think the most likely explanation for your episode last night was that you either had a migraine phenomenon or you had some side effect from marijuana. Your physical exam in the emergency room today is very reassuring. Your EKG and your blood testing is unremarkable. Please continue your regular medications. Please keep your appointment with your regular doctor soon. Return to the emergency room if significantly worse. Prescriptions: No Action atorvastatin 20 mg tablet 20 mg PO DAILY spironolactone 25 mg tablet 25 mg PO DAILY lisinopril 40 mg tablet 40 mg PO DAILY diltiazem HCl 180 mg capsule,extended release 24hr 180 mg PO DAILY aspirin 81 mg Capsule 81 mg PO DAILY Referrals: Tomy Painting MD [Primary Care Provider] - ( possible migraine episode) Print Language: Wolof
[2024-12-22 08:57] LABS: Alanine Aminotransferase 21 U/L (0-31); Albumin Level 4.3 g/dL (3.5-5.0); Alkaline Phosphatase 121 U/L (39-117); Anion Gap 11 (12-20); Aspartate Amino Transferase 26 U/L (5-31); Bilirubin Total 0.7 mg/dL (0.0-1.0); Blood Urea Nitrogen 12 mg/dL (9-16); Calcium 9.3 mg/dL (8.4-10.2); Carbon Dioxide 24 mmol/L (22-29); Chloride 105 mmol/L (96-108); Creatinine Clr Calc Pharmacy 66.8; Estimated Glomerular Filt Rate > 60; Glucose Random 99 mg/dL (60-115); Potassium 4.2 mmol/L (3.3-5.1); Sodium 136 mmol/L (135-145); Total Protein 6.9 g/dL (6.5-8.0)
[2024-12-22 09:03] LABS: Troponin-I High Sensitivity < 2.7 ng/L (<3.5-17.0)
--- OUTSIDE RECORDS SUMMARY | 2024-12-22 09:06 | XMS_ITS ---
Author Organization [facility] Address [address] [place] [address] Care Team Providers Care Grouter Helper Name Role Phone Mert DAVIS, Tomy Primary Care Provider UnaCaleb Li Unavailable [phone] REASON FOR VISIT upper right back pain/pencil stools/feeling of gas bubble Medications Medication SIG (Take, Route, Fr equency, Duration) Notes Start Date End Date Status Omeprazole 20 MG 1 Orally Once every morning for 30 day(s) 12/28/2023 Active Problems Problem Type SNOMED Code ICD Code Onset Dates Problem Status W/U Status Risk Notes Problem Upper abdominal pain (81726820) Upper abdominal pain (R10.10) Active confirmed Encounters Encounter Location Date Provider Diagnosis [facility] [address] [place] [address] 12/24/2023 Caleb Barros Upper abdominal pain R10.10 Assessments Encounter Date Diagnosis (ICD Code) Assessment Notes Treatment Notes Treatment Clinical Notes Section Notes 12/24/2023 Upper abdominal pain (ICD-10 - R10.10) Plan Of Treatment Medication Medication Name Sig Start Date Stop Date Notes Omeprazole 20 MG 1 Orally Once every morning for 30 day(s) 12/28/2023 Pending Test Test Name Order Date LIVER PROFILE 12/24/2023 CBC w DIFF 12/24/2023 Lipase 12/24/2023 US abdomen complete 12/24/2023 Next Appt Details Provider Name:Caleb Barros , 12/27/2024 02:40:00 PM, [address], [address], [place], [address], Progress Notes * JAILYN MCCALLUM:1955 (68 yo F)Acc No.[id number]:12/24/2023 Patient:FLORENCIA MCPHERSON :1955???Age:68 Y???Sex:Female Address:[address] [place] [address], [address] * Refills? Start Omeprazole Capsule Delayed Release, 20 MG, Orally, 30, 1, Once every morning, 30 day(s), Refills=1 Subjective: * Chief Complaints: * ???Upper right back pain/pen cil stools/feeling of gas bubble * Medical History:? * Surgical History:? * Hospitalization/Major Diagno stic Procedure:? * Medications:? Objective: Assessment: * Assessment: 1.?Upper abdominal pain - R1 0.10 (Primary)? Plan: * Treatment: * Procedure Codes:? * true * Date:? Generated for Rufina meredith/Genevieve/Joelsmitting on:?12/22/2024 09:05 AM EDT
--- OUTSIDE RECORDS SUMMARY | 2024-12-22 09:06 | XMS_ITS ---
Author Organization [facility] Address [address] [place] [address] Care Team Providers Care Cook Fish And Chips Name Role Phone Mert DAVIS, Tomy Primary Care Provider Unava Caleb Ewing Unavailable [phone] REASON FOR VISIT ov appt Encounters Encounter Location Date Provider Diagnosis [facility] [address] [place] [address] 05/10/2024 Caleb Barros Plan Of Treatment Next Appt Details Provider Name:Caleb Barros , 12/27/2024 02:40:00 PM, [address], [address], [place], [address], Progress Notes * CALEB MCCALLUMOB:1955 (68 yo F)Acc No.[id number]:05/10/2024 Patient:?FLORENCIA MCCALLUM :1955???Age:68 Y???Sex:Female Address:[address] , [place], [address] * true * Date:? Generated for Printi ng/Fakennethg/eTransmitting on:?12/22/2024 09:06 AM EDT
--- OUTSIDE RECORDS SUMMARY | 2024-12-22 09:06 | XMS_ITS | Patient Health Record ---
Author Organization [facility] Address [address] [place] [address] Care Team Providers Care Cable Wirer Name Role Phone Mert DAVIS, Tomy Primary Care Provider Shelbi Heck Unavailable [phone] Allergies No Known Allergies Reason For Referral No Information Medications Medication SIG (Take, Route, Frequency, Duration) Notes Start Date End Date Status Lisinopril 40 MG 1 tablet Orally Once a day Active Spironolactone 25 MG 1 tablet Orally Active Atorvastatin Calcium 20 MG 1 tablet Oral ly Once a day Active Diltiazem CD 180 mg Active Aspirin 81 MG 1 tablet Orally Once a day Active Social History Tobacco Use: Social History Observation Description Date Details (start date - stop date) Former Smoker NA - NA Tobacco Use/Smoking Question Answer Notes Are you a: former smoker Additional Findings: Tobacco Non-User Current no n-smoker Alcohol Screen Question Answer Notes Did you have a drink contain ing alcohol in the past year? Yes How often did you have a dri nk containing alcohol in the past year? Monthly or less (1 point) Points 1 Interpretation Negative Tobacco use other than smoking: Question Answer Notes Are you an other tobacco user? No Problems Problem Type SNOMED Code ICD Code Onset Dates Problem Status W/U Status Risk Notes Problem [id number] Hammer toe of right foot (M20.41) Active confirmed Plan Of Treatment No Information Insurance Providers Payer Name Payer Address Payer Phone Subscriber Number Group Number Insured Name Patient Relationship to Insured Coverage Start Date Coverage End Date Medicare [employer] [address] [facility] [place] [address] [id number] Corrine Allen Self - patient is the insured Medical (General) History Medical History History ICD Code Cataracts covid-19 High blood pressure TIA Measles Chicken pox Surgical History Surgery Date(Month/Year) appendectomy 11/2005
--- OUTSIDE RECORDS SUMMARY | 2024-12-22 09:06 | XMS_ITS | Patient Health Record ---
Author Organization [facility] Address [address] [place] [address] Care Team Providers Care Avionics Technician Name Role Phone Mert DAVIS, Elizabeth Primary Care Provider Caleb Palmer Unavailable [phone] Allergies No Known Allergies Results Component Value Reference Range Notes Complete Blood Count Auto Di ff Reviewed date:02/26/2024 01:31:25 PM Interpretation: Performing Lab:[facility], [address] [place] [address] Notes/Report: White Blood Count 4.9 4.8-10.8 X10*3/uL Red Blood Count 3.93 4.20-5.50 X10*6/uL Hemoglobin 12.3 12.0-16.0 g/dl Hematocrit 36.5 37.0-47.0 % Mean Corpuscular Volume 92.9 80.0-98.0 fL Mean Corpuscular Hemoglobin 31.3 27.0-33.0 pg Mean Corpuscular HGB Conc 33.7 31.0-35.0 g/dl Red Cell Distribution Width 12.2 11.0-16.0 % Platelet Count 301 160-400 X10*3/uL Mean Platelet Volume 8.2 9.4-12.3 fL Neutrophils Percent Auto 62.4 45-73 % Imm Gran Pct Auto 0.4 0.0-0.4 % Lymphocytes Percent Auto 24.8 20-40 % Monocytes Percent Auto 9.4 2-11 % Eosinophils Percent Auto 2.6 0-4 % Basophils Percent Auto 0.4 0-2 % NRBC Pct Auto 0.0 0.0-0.2 /100WBC Neutrophils Absolute Auto 3.1 2.0-8.3 x10*3/u L Imm Gran Abs Auto 0.02 0.00-0.03 X10*3/uL Lymphocytes Absolute Auto 1.2 1.2-4.9 X10*3/u L Monocytes Absolute Auto 0.5 0.1-1.2 X10*3/uL Eosinophils Absolute Auto 0.1 0.0-0.4 X10*3/u L Basophils Absolute Auto 0.0 0.0-0.2 X10*3/uL NRBC Abs Auto 0.000 0.0-0.012 X10*3/uL Liver Panel Reviewed date:01/12/2024 06:06:41 PM Interpretation: Performing Lab:[address] [address] Notes/Report: Bilirubin Total 0.6 0.0-1.0 mg/dL Bilirubin Direct 0.3 0.0-0.5 mg/dL Aspartate Amino Transferase 21 5-31 U/L Alanine Aminotransferase 21 0-31 U/L Total Protein 6.5 6.5-8.0 g/dL Albumin Level 4.1 3.5-5.0 g/dL Alkaline Phosphatase 110 39-117 U/L Lipase Reviewed date:01/12/2024 06:06:28 PM Interpretation: Performing Lab:[facility], [address] [place] [phone] Notes/Report: Lipase 28 8-78 U/L US abdomen complete Reviewed date:02/26/2024 01:30:57 PM Interpretation: Performing Lab: Notes/Report: [address] [address] Ultrasound Report Signed Patient: Corrine Mccallum MR#: [id number] 1 : 1955 Acct:[id number] Age/Sex: 68 / F ADM Date: 01/12/24 Loc: HO.US Attending Dr: Caleb Barros MD Ordering Physician: Caleb Barros Date of Service: 01/12/24 Procedure(s): US abdomen complete Accession Number(s): [id number] cc: ELIZABETH MITCHELL MD; Caleb Barros EXAMINATION: US ABDOMEN COMPLETE CLINICAL INFORMATION: Upper abdominal pain. COMPARISON: CTA abdomen and pelvis 06/17/2023. TECHNIQUE: Real-time imaging of the abdominal viscera. FINDINGS: PANCREAS: Normal. ABDOMINAL AORTA: Some calcific atherosclerotic plaque is present in the aorta, but there is no aneurysm. INFERIOR VENA CAVA: Visualized portions are normal. LIVER: Normal. The liver is normal in size. The liver contour is normal. Parenchymal echogenicity is normal. No focal hepatic lesion. There is no intrahepatic biliary duct dilatation seen. GALLBLADDER: Normal. The gallbladder is physiologically distended without evidence of stones, sludge, polyps, wall thickening or pericholecystic fluid. COMMON BILE DUCT: Normal in caliber measuring 0.9 cm in diameter. RIGHT KIDNEY: Normal. No hydronephrosis. No renal calculi or focal parenchymal lesions. The kidney measures 10.4 cm in maximum dimension. LEFT KIDNEY: Normal. No hydronephrosis. No renal calculi or focal parenchymal lesions. The kidney measures 10.1 cm in maximum dimension. SPLEEN: Normal. The spleen measures 9.5 cm in maximum dimension. FREE FLUID: None. US/US abdomen complete IMPRESSION: No significant abnormality is seen. Dictated By: Taz Styles MD Signed By: <Electronically signed by Taz Styles MD in OV> 01/16/24 1306 DD/ 0804 TD/TT: Rn Anesthetist: [place] [id number] Ultrasound Report Signed Patient: Supriya Mccallum MR#: [id number] 1 : 1955 Acct:[id number] Age/Sex: 68 / F ADM Date: 01/12/24 Loc: HO.US Attending Dr: Caleb Barros MD Ordering Physician: Caleb Barros Date of Service: 01/12/24 Procedure(s): US abd omen complete Accession Number(s): [id number] cc: ELIZABETH MITCHELL MD; Caleb Barros EXAMINATION: US ABDOMEN COMPLETE CLINICAL INFORMATION: Upper abdominal pain. COMPARISON: CTA abdomen and pelv is 06/17/2023. TECHNIQUE: Real-time imaging of the abdominal viscera. FINDINGS: PANCREAS: Normal. ABDOMINAL AORTA: Chago e calcific atherosclerotic plaque is present in the aorta, but there is no aneurysm. INFERIOR VENA CAVA: Visualized portions are normal. LIVER: Normal. The l iver is normal in size. The liver contour is normal. Parenchymal echogenicity is normal. No focal hepatic lesion. There is no intrahep atic biliary duct dilatation seen. GALLBLADDER: Normal. The gallbladder is physiologically distended without evidence of stones, sludge, polyps, wall thickening or pericholecystic fluid. COMMON BILE DUCT: No rmal in caliber measuring 0.9 cm in diameter. RIGHT KIDNEY: Normal . No hydronephrosis. No renal calculi or focal parenchymal lesions. The kidney measures 10.4 cm in maximum dimension. LEFT KIDNEY: Normal. No hydronephrosis. No renal calculi or focal parenchymal lesions. The kidney measures 10.1 cm in maximum dimension. SPLEEN: Normal. The spleen measures 9.5 cm in maximum dimension. FREE FLUID: None. U S/US abdomen complete IMPRESSION: No significant abnor mality is seen. Dictated By: Taz Styles MD Signed By: <Mauricio aldrich signed by Taz Styles MD in OV> 01/16/24 1306 DD/ 0804 TD/TT: Rn Anesthetist: Reason For Referral No Information Medications Medication SIG (Take, Route, Frequency, Duration) Notes Start Date End Date Status Lisinopril 40 MG Oral for 90 A ctive dilTIAZem HCl ER Coated Beads 180 MG Oral for 90 Active Aspir-Low 81 MG 1 tablet Orally Once a day for 30 day(s) Active Atorvastatin Calcium 20 MG Oral for 90 Active Spironolactone 25 MG Oral for 30 Active Omeprazole 20 MG TAKE [address] [facility] EVERY MORNING Orally Once a day for 90 days Active Immunizations Vaccine Route Administration Date Status Comme nts Influenza Unknown 12/27/2019 Refused Influenza Unknown 05/19/2023 Refused Social History Tobacco Use: Social History Observation Description Date Details (start date - stop date) Never Smoker NA - NA Tobacco Use/Smoking Question Answer Notes Patient is a nonsmoker Alcohol Screen Question Answer Notes Did you have a drink containing alcohol in the p ast year? No Points 0 Interpretation Negative Section Notes: Nonsmoker; no sig alcohol Nonsmoker x 20 years; no sig alcohol Smokes marijuana occasionally Problems Problem Type SNOMED Code ICD Code Onset Dates Problem Status W/U Status Risk Notes Problem 29988457 Rectal bleeding (K62.5) Active confirmed Problem 776710601 Encounter for screening for malignant neoplasm of colon (Z12.11) Active confirmed Problem Diverticular disease of colon (221025374) Diverticulosis of large intestine without perforation or abscess without bleeding (K57.30) Active confirmed Problem 154477951 Abnormal CT scan , colon (R93.3) Active confirmed Problem 195395591513937 Pre-procedural examination (Z01.818) Active confirmed Problem Upper abdominal pain (27152947) Upper abdominal pain (R10.10) Active confirmed Encounters Encounter Location Date Provider Diagnosis [facility] [address] [place] [address] 12/24/2023 Caleb Barros Upper abdominal pain R10.10 [facility] [address] [place] [address] 05/10/2024 Caleb Barros Assessments Encounter Date Diagnosis (ICD Code) Assessment Notes Treatment Notes Treatment Clinical Notes Section Notes 12/24/2023 Upper abdominal pain (ICD-10 - R10.10) Plan Of Treatment Pending Test Test Name Order Date BUN 05/19/2023 LIVER PROFILE 12/24/2023 CBC w DIFF 12/24/2023 Lipase 12/24/2023 CT angio abdomen pelvis 05/19/2023 US abdomen complete 12/24/2023 Future Test Test Name Order Date COLONOSCOPY 12/27/2019 COLONOSCOPY 05/19/2023 Next Appt Details Provider Name:Caleb Barros , 12/27/2024 02:40:00 PM, [address], [address], [place], [address], Insurance Providers Payer Name Payer Address Payer Phone Subscriber Number Group Number Insured Name Patient Relationship to Insured Coverage Start Date Coverage End Date [facility] [address] [place] [address] [id number] CORRINE MCCALLUM Self - patient is the insured Medical (General) History Medical History History ICD Code Denies [place],DM,CVA,Lung disease,renal dise ase TIA 2019 Neg. colonoscopy 03/2020 except for a hyp erplastic polyp HTN Hyperlipidemia December and March of 2023--epis odes of acute abdominal pain, diarrhea, and bleeding; the CT scan in March revealed a focal area of edema and inflammation in the descending colon Surgical History Surgery Date(Month/Year) Appendix
--- OUTSIDE RECORDS SUMMARY | 2024-12-22 09:07 | XMS_ITS ---
Author Organization [facility] Address [address] [place] [address] Care Team Providers Care Contact Officer Name Role Phone Mert DAVIS, Tomy Primary Care Provider Unava Caleb Ewing Unavailable [phone] REASON FOR VISIT Patient presents today for ABD PAIN Encounters Encounter Location Date Provider Diagnosis [facility] [address] [place] [address] 09/21/2024 Caleb Barros Plan Of Treatment Next Appt Details Provider Name:Caleb Barros , 12/27/2024 02:40:00 PM, [address], [address], [place], [address], Progress Notes * CALEB MCCALLUMOB:1955 (69 yo F)Acc No.[id number]:09/21/2024 Progress Notes Patient:?FLORENCIA MCCALLUM Provider:?Caleb Barros MD :1955???Age:69 Y???Sex:Female D ate:09/21/2024 Address:[address] , [id number] Pcp:Tomy Painting MD Subjective: * Chief Complaints: * ???1. Patient presents today for ABD PAIN. * Medical History:? Objective: * Vitals:? Assessment: Plan: * Treatment: * * The named appointment provid er may or may not be the originator of this progress note, and it is not deemed complete until electronically signed by the appointment provider. Sign off status: Pending * Provider:?Caleb Barros MD Date:? 025 Generated for Printi ng/Genevieve/Gegeitting on:?12/22/2024 09:06 AM EDT
[2024-12-22 09:40] VITALS: BP 111/69; PULSE 61; RESP 16; TEMP 36.6; O2SAT 99
== END 2024-12-22 09:46 | disposition home or self-care (01) ==
PROVIDERS: Emergency Provider Emergency Medicine; PCP Internal Medicine
DX: R42 Dizziness and giddiness (principal); F12.90 Cannabis use, unspecified, uncomplicated; R11.0 Nausea; R55 Syncope and collapse; H53.143 Visual discomfort, bilateral; Z79.899 Other long term (current) drug therapy; Z87.891 Personal history of nicotine dependence
CPT/HCPCS: 80053; 84484; 85025; 85610; 93005; 99283; 99285

== ENCOUNTER → 2024-12-22 08:04 | Outpatient (BNV) | payer MEDICARE, SELFPAY | PROVIDERS: Emergency Provider Emergency Medicine; PCP Internal Medicine; Visit Provider Internal Medicine | DX: R42 Dizziness and giddiness (principal) | CPT/HCPCS: 93010 ==